=== PATIENT | female | born 1975 | race Caucasian/White ===

== ENCOUNTER 2016-07-19 16:50 | Emergency (ER) | payer OTHER ==
--- NOTE | 2016-07-19 20:03 | ED ORDER SUMMARY ---
..... Patient: JUSTINE BOND OrderSheet [facility] VisitID: [id number] [place] [address] 41y, F Registration Date/Time: 07/19/2016 ORDER SHEET Weight: 52.1 kg (stated) Allergies: No Known Drug Allergy GENERAL ORDERS: CBC w Diff Urgent (18:04 07/19/2016 Lena Tadeo) (18:06 Ángel R.N.) CMP Urgent (18:04 07/19/2016 Lena Tadeo) (18:06 Ángel R.N.) UA-Culture if indicated Urgent (18:04 07/19/2016 Lena Tadeo) (18:06 Ángel R.N.) PT with INR Urgent (18:04 07/19/2016 Lena Tadeo) (18:06 Ángel R.N.) Urine Drug Screen Urgent (18:04 07/19/2016 Lean aTdeo) (18:06 Ángel R.N.) Ethyl Alcohol Urgent (18:04 07/19/2016 Lena Tadeo) (18:06 Ángel R.N.) Salicylate Level Urgent (18:04 07/19/2016 Lena Tadeo) (18:06 Ángel R.N.) Acetaminophen Level Urgent (18:04 07/19/2016 Lena Tadeo) (18:06 Ángel R.N.) MEDICATION ORDERS: IV FLUIDS: ORDER SHEET NOTES: [Electronically signed by Jessica Maguire R.N. (20:07/19/2016)] [Electronically signed by Epifanio Mena Dr. (11:16 07/24/2016)] [Electronically locked/signed by Jessica Maguire R.N. (20:13 07/19/2016)]
--- NOTE | 2016-07-19 20:03 | ED ORDER SUMMARY ---
..... Patient: JUSTINE BOND OrderSheet [facility] VisitID: [id number] [place] [address] 41y, F Registration Date/Time: 07/19/2016 ORDER SHEET Weight: 52.1 kg (stated) Allergies: No Known Drug Allergy GENERAL ORDERS: CBC w Diff Urgent (18:04 07/19/2016 Lena Tadeo) (18:06 Ángel R.N.) CMP Urgent (18:04 07/19/2016 Lena Tadeo) (18:06 Ángel R.N.) UA-Culture if indicated Urgent (18:04 07/19/2016 Lena Tadeo) (18:06 Ángel R.N.) PT with INR Urgent (18:04 07/19/2016 Lena Tadeo) (18:06 Ángel R.N.) Urine Drug Screen Urgent (18:04 07/19/2016 Lena Tadeo) (18:06 Ángel R.N.) Ethyl Alcohol Urgent (18:04 07/19/2016 Lena Tadeo) (18:06 Ángel R.N.) Salicylate Level Urgent (18:04 07/19/2016 Lena Tadeo) (18:06 Ángel R.N.) Acetaminophen Level Urgent (18:04 07/19/2016 Lena Tadeo) (18:06 Ángel R.N.) MEDICATION ORDERS: IV FLUIDS: ORDER SHEET NOTES: [Electronically signed by Jessica Maguire R.N. (20:07/19/2016)] [Electronically signed by Epifanio Mena Dr. (11:16 07/24/2016)] [Electronically locked/signed by Jessica Maguire R.N. (20:13 07/19/2016)]
--- NOTE | 2016-07-19 20:03 | ED CLINICAL REPORT ---
Clinical Report - Physicians/Mid Levels [facility] [address] [place] [address] 07/19/2016 16:50 Patient: JUSTINE BOND Time Seen: 1750. Arrived- By private vehicle. Historian- patient and spouse. Referred by patient's family. HISTORY OF PRESENT ILLNESS Chief Complaint: DELUSIONAL. This started past few days. Has not been sleeping. She has had delusions. No suicidal thoughts or self-injury inflicted. The symptoms are described as moderate. No injury is present. Additional history - recently stopped taking medication because she "felt fine.". Similar symptoms previously: Recent medical care: The patient was seen recently by a health care provider. ( started back up on meds however states it has only been about 4 days since on it.). REVIEW OF SYSTEMS No headache, chest pain, fever, difficulty breathing or skin rash. All systems otherwise negative, except as recorded above. PAST HISTORY See nurses notes. Medications: BusPIRone HCl Oral 30 mg, 2x a day. RisperDAL Oral 6 mg, daily. OxyCODONE HCl Oral 30 mg, 3x a day. Cyclobenzaprine HCl Oral 10 mg, 3x a day. Vistaril Oral 50 mg, 3x a day. Gabapentin Oral (Tablet 600 mg), 3x a day. Allergies: No Known Drug Allergy. SOCIAL HISTORY Smoker- current status unknown. No alcohol use or drug use. Has social support. Has place to stay. FAMILY HISTORY No history of suicide attempts. PHYSICAL EXAM Appearance: Alert. No acute distress. Appearance is normal. Anxious. (well groomed. polite. cooperative. pleasant. accompanied by who is also supportive and caring.). HEENT: (glasses). Eyes: Pupils equal, round and reactive to light. CVS: Normal heart rate and rhythm. Heart sounds normal. Respiratory: Breath sounds normal. Chest nontender. Abdomen: Soft and nontender. Skin: Skin warm and dry. Normal skin color. Normal skin turgor. Extremities: Lower extremity edema. Extremities exhibit normal ROM. No lower extremity edema. Psych / Neuro: Oriented X 3. (mood is slightly elevated. affect is congruent.). Cognition normal. Thought process normal. Appears to have delusions (past several days. hearing things but is exaggerated and disturbing like the house settling.). She does appear to understand hers illness or feel treatment is necessary or appears concerned about hers current condition. Insight and judgement normal. Cranial nerves normal (as tested). No cerebellar findings. No motor deficit. No sensory deficit. Reflexes normal. (normal gait). LABS, X-RAYS, AND EKG Laboratory Tests: UA-Culture if indicated: (KYLE: 07/19/2016 18:05) ( [facility] 07/19/2016 18:54) Final results Test Result Flag Units (Reference) URINE COLOR YELLOW URINE APPEARANCE CLEAR URINE GLUCOSE NEGATIVE (NEGATIVE) URINE BILIRUBIN NEGATIVE (NEGATIVE) URINE KETONE NEGATIVE (NEGATIVE) URINE SPECIFIC GRAVITY 1.025 (1.010-1.030) URINE PH 6.0 (5.0-8.0) URINE PROTEIN TRACE (NEGATIVE) URINE UROBILINOGEN 0.2 EU/dL (0.2-1.0) URINE NITRITE NEGATIVE (NEGATIVE) URINE BLOOD TRACE-INTACT (NEGATIVE) URINE LEUK ESTERASE POSITIVE (NEGATIVE) URINE RBC 1-3 rbc/hpf (0-1) URINE WBC 5-10 wbc/hpf (0-1) URINE EPITHELIAL CELLS 1-3 EPI/hpf (0-5) URINE BACTERIA MODERATE (2+ TO 3+) (NONE SEEN) 2+ AMORPHOUS2+ MUCOUSTRANSITIONAL EPITHELIAL CELLS 0-1/HPF URINE COMMENT CULTURE INDICATED URINE CULTURES ARE SET-UP BASED ON THE FOLLOWING CRITERIA:POSITIVE NITRITEPOSITIVE LEUKOCYTE ESTERASEGREATER THAN 10 WHITE BLOOD CELLSMODERATE (2+) OR GREATER BACTERIA CBC w Diff: (KYLE: 07/19/2016 18:05) ( [facility] 07/19/2016 18:15) Final results Test Result Flag Units (Reference) WHITE BLOOD COUNT 12.3 H K/uL (4.5-11.5) RED BLOOD COUNT 4.46 M/uL (4.00-5.20) HEMOGLOBIN 13.9 gm/dL (12.0-16.0) HEMATOCRIT 41.6 % (36.0-46.0) MEAN CELL VOLUME 93 fL (80-100) MEAN CORPUSCULAR HGB 31 pg (26-34) MEAN CORPUSCULAR HGB CONC 33 g/dL (31-37) RED CELL DISTRIBUTION WIDTH 12.9 % (11.6-14.8) PLATELET COUNT 291 K/uL (150-400) NEUTROPHIL % 61.7 % (50-75) LYMPH % 31.0 % (25-40) MONO % 6.3 % (3-14) EOSINOPHIL % 0.4 % (0-4) BASOPHIL % 0.6 % (0-2) PT with INR: (KYLE: 07/19/2016 18:05) ( [facility] [place] [place] 18:28) Final results Test Result Flag Units (Reference) INR 0.9 (0.8-1.2) Low Intensity Therapy: INR 1.5-2.0 PT range 18.5-23.1Mod.Intensity Therapy: INR 2.0-3.0 PT range 23.1-31.5High Intensity Therapy: INR 2.5-3.5 PT range 27.4-35.5High Intensity Therapy 2: INR 3.0-4.0 PT range 31.5-39.3 Urine Drug Screen: (KYLE: 07/19/2016 18:05) ( [facility] [place] 18:37) Final results Test Result Flag Units (Reference) AMPHETAMINE/METHAMPHETAMINE NEGATIVE (NEGATIVE) BARBITURATE NEGATIVE (NEGATIVE) BENZODIAZEPINE NEGATIVE (NEGATIVE) CANNABINOID NEGATIVE (NEGATIVE) COCAINE NEGATIVE (NEGATIVE) ECSTASY NEGATIVE (NEGATIVE) METHADONE NEGATIVE (NEGATIVE) OPIATE POSITIVE H (NEGATIVE) The urine drug screen is a qualitative screening test fordrug overdose and abuse. All screen results should beconsidered as presumptive.Drugs screened for are as follows:BenzodiazepinesCocaineAmphetamines/MetamphetaminesTHC (Tetrahydrocannabinol)OpiatesBarbituratesEcstasyMethadonePositive results are unconfirmed. For confirmation, notifythe lab for the specimen to be sent to the reference lab.All confirmations must be performed by a differentmethodology.The ingestion of natural herbal and plant productscontaining Ephedra/Ephedra metabolites can produce in urineone or more substances capable of cross reacting withamphetamine/methamphetamine immunoassays. These testsprovide a preliminary result only. A more specificalternative chemical method must be used to obtain aconfirmed analytical result. Salicylate Level: (KYLE: 07/19/2016 18:05) ( [facility] 07/19/2016 18:29) Final results Test Result Flag Units (Reference) SALICYLATE 7.3 mg/dL (2.8-20) CMP: (KYLE: 07/19/2016 18:05) ( [facility] 07/19/2016 18:36) Final results Test Result Flag Units (Reference) GLUCOSE 108 mg/dL (70-110) BUN 18 mg/dL (7-18) CREATININE 0.8 mg/dL (0.6-1.3) Estimated GFR >60 mL/min Estimated GFR- >60 mL/min Note: Persistent reduction over 3 months in eGFR<60 mL/min/1.73 m2 defines CKD. Patients with eGFR values>=60 mL/min/1.73 m2 may also have CKD if evidence ofpersistent proteinuria. Additional information may be foundat www.kidney.org. SODIUM 140 mmol/L (136-145) POTASSIUM 4.3 mmol/L (3.5-5.1) CHLORIDE 102 mmol/L (98-107) CARBON DIOXIDE 26 mmol/L (21-32) CALCIUM 9.4 mg/dL (8.5-10.1) TOTAL PROTEIN 7.8 g/dL (6.4-8.2) ALBUMIN 4.0 g/dL (3.3-5.0) BILIRUBIN, TOTAL 0.3 mg/dL (0.0-1.0) ALKALINE PHOSPHATASE 100 U/L (46-116) AST (SGOT) 18 U/L (15-37) ALT (SGPT) 26 U/L (12-78) ACETAMINOPHEN < 10 L ug/mL (10-30) ETHYL ALCOHOL <3 L mg/dL (3-10) . PROGRESS AND PROCEDURES Course of Care: the patient is a pleasant 41-year-old female presenting for evaluation of delusions. Patient has been off her medications for about a week and had recently started them several days ago. At this time differential diagnosis includes acute psychosis secondary to medication noncompliance as well as other toxic abnormalities in regards to patient's presentation. Did not feel patient's situation is likely due to anyother significant factors as patient does not mention any of theseon questioning. No signs of infectious etiology and encouraged to patient's presentation here today as well. Patient is nontoxic and cooperative. Discusses the patient her work. Emergency Department and plan of care. Patient is agreeable to this. Since workup was marked for the findings above. Patient is medically cleared. Patient will be speaking to the crisis counselor in regards to resources and possible treatment plans. Patient was seen by the counselor. Patient is not a danger to self or others. Patient does not need to be admitted on inpatient psychiatric service. Agree with the crisis counselors evaluation. Patient is not a danger to self or others however does need some help with the delusions/psychosis. Had discussions with patient in regards to different medications that could be tried. I recommended benzodiazepines as they are well tolerated and have less of a side effect profile. Patient states that she has some aversion to the benzodiazepines. Because of this, a antipsychotic will be given. Haldol will be prescribed only for a short amount of time for the patient's Normal whole medication to start taking effect. Patient should only need this for a few days. Benefits of this medication outweigh the risks. Discussed with the patient and her spouse the workup here in the emergency department including diagnosis, home care, follow-up, and return precautions. All questions have been answered. The patient and spouse expressed understanding of these instructions and was agreeable to them. Disposition: Discharged. Condition: good. CLINICAL IMPRESSION 07/19/2016 19:00 BP: 115/45. HR: 78. RR: 15. O2 saturation: 100%. Pain level now: 0/10. 07/19/2016 17:34 BP: 119/83. HR: 62. RR: 20. O2 saturation: 98%. Temp: 98.7 F. Pain level now: 0/10. Blood pressure normal. Oxygen saturation normal. Acute psychosis with delusions, (exacerbation). INSTRUCTIONS Warnings: GENERAL WARNINGS: Return or contact your physician immediately if your condition worsens or changes unexpectedly, if not improving as expected, or if other problems arise. Specifically return if pain, vomiting, bleeding, breathing difficulty or fever. changes in behavior. Your Current Medications: CONTINUE TAKING THE FOLLOWING MEDICATIONS: BusPIRone HCl Oral : 30 mg 2x a day. Cyclobenzaprine HCl Oral : 10 mg 3x a day. Gabapentin Oral : Tablet 600 mg, 3x a day. OxyCODONE HCl Oral : 30 mg 3x a day. RisperDAL Oral : 6 mg daily. Vistaril Oral : 50 mg 3x a day. Prescription Medications: Haldol 2 mg: take 1 orally every 8 hours for 3 days. No refill. Substitution is permissible. (Disp 9 tabs. Take as needed for psychosis) Follow-up: Return to the emergency department as needed. Follow up with your doctor in three days. Reason for referral: recheck today's cocnerns. Summary of care provided to patient via paper. Screening today revealed the patient's blood pressure to be in the normal range. The patient should follow up with a primary care provider for blood pressure management. Understanding of the discharge instructions verbalized by patient. Discharge instructions reviewed (spouse). (Electronically signed by Epifanio Mena Dr. 07/24/2016 11:16) Addenda for JUSTINE BOND VisitID: [id number] Date: 07/19/2016 07/19/2016 18:34 the patient is a pleasant 41-year-old female with past medical history significant for prior headaches presenting for evaluation of headache. The patient was initially evaluated by the mid-level provider. Please see her note for further details. Patient with onset of headache this morning. Patient states that the headache had reached maximum intensity at around 2:30 PM this afternoon. This is greater than 1 hour after the onset of headache. Low clinical suspicion for subarachnoid hemorrhage at this time. Patient with normal neurological examination. No nuchal rigidity. No fever. Patient also has a negative CT scan. She also has lmiited risk factors including no history or family history of connective tissue disease, subarachnoid hemorrhages, substance abuse, or bleeding problems. Discussed with the patient the risks and benefits of the lumbar puncture. After long discussion the patient in regards to the pros and cons as well as utility of the lumbar puncture, patient declines offers of lumbar puncture. Patient is otherwise neurovascularly intact. Patient with normal mentation. Patient is able to make decisions for herself. Given the patient's low risk for subarachnoid hemorrhage, normal physical examination, normal vital signs here in the emergency department, and negative CT scan, feel the risks outweigh the benefits. Patient was encouraged to contact her health care provider or return to the emergency department immediately for any changes or worsening of her symptoms. Patient will be monitored here in the emergency department for further treatment of her headache. Patient states that the medication that she had received here in the emergency department has significantly helped with her headache. (Electronically signed by Epifanio Mena Dr. - 07/19/2016 18:34)
--- NOTE | 2016-07-19 20:03 | ED NURSING NOTES ---
Clinical Report - Nurses [place] [address] [place] [address] 07/19/2016 16:50 [id number] Triage time 17:34. Acuity: LEVEL 3. Chief Complaint: DELUSIONS. Alert. MOON COMA SCORE: [place] Coma Scale: 15- eyes open spontaneously (4); best verbal response- oriented x 4 (5); best motor response- obeys commands (6). --17:44 Ina Downs R.N. 17:34 07/19/16. BP: 119/83. HR: 62. RR: 20. O2 saturation: 98% on room air. Temp: 98.7 F (oral). Pain level now: 0/10. --17:44 Ina Downs R.N. Weight: 52.1 kg stated. Height/Length: 66 inches Per Patient. BMI: 18.5. --17:41 Ina Downs R.N. Medications Gabapentin Oral (Tablet 600 mg), 3x a day. --17:36 Ina Downs R.N. Vistaril Oral 50 mg, 3x a day. --17:37 Ina Downs R.N. Cyclobenzaprine HCl Oral 10 mg, 3x a day. --17:37 Ina Downs R.N. OxyCODONE HCl Oral 30 mg, 3x a day. --17:37 Ina Downs R.N. RisperDAL Oral 6 mg, daily. --17:38 Ina Downs R.N. BusPIRone HCl Oral 30 mg, 2x a day. --17:39 Ina Downs R.N. Medication/allergy information source: the patient. --17:44 Ina Downs R.N. Allergies No Known Drug Allergy. --17:39 Ina Downs R.N. History Arrived by private vehicle. Historian: patient. Accompanied by family. Primary physician (Kristie). Onset. (about 2 weeks, worst on Saturday). ( saw her practioner on saturday and got her started back on her medicine but she is still hearing voices, her house is "making noises"). SOCIAL HX: Heavy tobacco smoker- 1 pack per day. No alcohol use or drug use. SELF HARM ASSESSMENT: A self harm assessment was performed. The patient answered "yes" to the question "Have you recently felt down, depressed, or hopeless?" and "Have you noticed less interest or pleasure in doing things?" and "no" to the question "Do you have thoughts of harming or killing yourself?", "Are you here because you tried to hurt yourself?", "Have you ever tried to hurt yourself before today?", "Have you recently had thoughts about harming or killing others?" and "Do you have any dangerous items in your possession?". The patient reports their behavior. (appears nervous, jiggling her foot). FALL RISK ASSESSMENT: Fall risk assessment completed. No fall risk identified. FUNCTIONAL ASSESSMENT: Functional assessment: no impairments noted. LEARNING NEEDS ASSESSMENT: The learning needs assessment revealed no barriers. --17:44 Ina Downs R.N. PROBLEMS: Delusions. Palpitations. Sprain. Chest Pain. Neuralgia. Tachycardia. --17:40 Ina Downs R.N. ADDITIONAL SURGERIES: Hysterectomy. Oophorectomy. --17:40 Ina Downs R.N. Assessment GENERAL / NEURO / PSYCH: The patient is awake and alert, is oriented and appears anxious. ( states "I don't know what is real and what isn't"). RESPIRATORY: Respirations not labored. SKIN: Skin is warm and dry. --17:44 Ina Downs R.N. Interventions ID band on patient. To treatment room. --17:44 Ina Downs R.N. PHYSICAL ASSESSMENT Ambulatory to room. Patient gowned. ( states she stopped taking her risperadol because she felt better, restarted it this Saturday). GENERAL / NEURO / PSYCH: The patient is awake and alert, is oriented and cooperative and appears anxious. She has good eye contact. RESPIRATORY: Respirations not labored. SKIN: Skin is warm and dry. --17:46 Ina Downs R.N. NURSING PROGRESS NOTES 17:46 07/19/16. Patient gowned. Head of bed elevated. Call light placed in reach. Side rails up x 1. Bed placed in lowest position. Brakes of bed on. --17:46 Ina Downs R.N. Reassurance given. Suicide precautions initiated. Clothing / valuables removed and placed at the nurse's station. Patient placed in direct sight of the nurse's station. --18:07 Jessica Maguire R.N. ( Pt states "feeling trapped in her thoughts with all the noises" denies suicide thoughts or trying to harm herself. Pt awaiting PAT team for evaluation.). --18:45 Jessica Maguire R.N. Reassurance given. Suicide precautions initiated. GENERAL / NEURO / PSYCH: The patient reports anxiety and restlessness. Denies anger. Not disoriented. Patient appears agitated. She not combative. --19:27 Jessica Maguire R.N. 19:00 07/19/16. BP: 115/45. HR: 78. RR: 15. O2 saturation: 100% on room air. Pain level now: 0/10. --19:27 Jessica Maguire R.N. DISPOSITION / DISCHARGE No learning barriers present. Discharge instructions provided and reviewed with the patient. Reviewed medication(s) side effects, precautions, dosing and course information. Prescription(s) given to the patient. Patient and spouse verbalized understanding. Written instructions provided in [place]i. ( Will follow-up with her on doctor tomorrow). The patient was discharged by the physician. She was discharged home and accompanied by spouse. She left the Emergency Department ambulatory and via private vehicle. Spouse driving. --20:13 Jessica Maguire R.N. 20:12 07/19/16. BP: 114/70 (regular adult cuff) taken on the left arm, while sitting. HR: 87. RR: 14. O2 saturation: 100%. Temp: 98.4 F (oral). Pain level now: 0/10. --20:13 Jessica Maguire R.N. Departure time: 2012 PM. --20:13 Maguire, Jessica, R.N. Locked/Released at 07/19/2016 20:13 by Jessica Maguire R.N.
--- NOTE | 2016-07-24 11:16 | ED MAR SUMMARY ---
..... Medication Administration Record [facility] [address] [place], [place] [id number] Patient: JUSTINE BOND Visit ID: [id number] 41y, F Weight: 52.1 kg Height/Length: 66 in BMI: 18.5 ALLERGIES: No Known Drug Allergy
--- NOTE | 2016-07-24 11:16 | ED MED RECONCILIATION SUMMARY ---
Patient: JUSTINE BOND Medication Reconciliation Report [facility] VisitID: [id number] [address] [place] [address] 41y, F Registration Date/Time: 07/19/2016 Weight: 52.1 kg Height/Length: 66 in. BMI: 18.5 ALLERGIES: No Known Drug Allergy The patient's Home Medications are listed below: CONTINUE TAKING THE FOLLOWING MEDICATIONS: BusPIRone HCl Oral 30 mg, 2x a day Cyclobenzaprine HCl Oral 10 mg, 3x a day Gabapentin Oral (600 mg), 3x a day OxyCODONE HCl Oral 30 mg, 3x a day RisperDAL Oral 6 mg, daily Vistaril Oral 50 mg, 3x a day The source(s) of the original Home Medication information: patient The following Medications were given to the patient in the Emergency Department: None. The following Medications were prescribed to the patient: Haldol 2 mg: take 1 orally every 8 hours for 3 days. No refill. Substitution is permissible.(Disp 9 tabs. Take as needed for psychosis) -- Epifanio Mena Dr.
--- NOTE | 2016-07-24 11:16 | ED MED RECONCILIATION SUMMARY ---
Patient: JUSTINE BOND Medication Reconciliation Report [facility] VisitID: [id number] [address] [place] [address] 41y, F Registration Date/Time: 07/19/2016 Weight: 52.1 kg Height/Length: 66 in. BMI: 18.5 ALLERGIES: No Known Drug Allergy The patient's Home Medications are listed below: CONTINUE TAKING THE FOLLOWING MEDICATIONS: BusPIRone HCl Oral 30 mg, 2x a day Cyclobenzaprine HCl Oral 10 mg, 3x a day Gabapentin Oral (600 mg), 3x a day OxyCODONE HCl Oral 30 mg, 3x a day RisperDAL Oral 6 mg, daily Vistaril Oral 50 mg, 3x a day The source(s) of the original Home Medication information: patient The following Medications were given to the patient in the Emergency Department: None. The following Medications were prescribed to the patient: Haldol 2 mg: take 1 orally every 8 hours for 3 days. No refill. Substitution is permissible.(Disp 9 tabs. Take as needed for psychosis) -- Epifanio Mena Dr.
--- NOTE | 2016-07-24 11:16 | ED DISCHARGE INSTRUCTIONS ---
Patient: JUSTINE BOND General Instructions [facility] VisitID: [id number] [place] [address] 41y, F Registration Date/Time: 07/19/2016 07/19/2016 19:00 BP: 115/45. HR: 78. RR: 15. O2 saturation: 100%. Pain level now: 0/10. 07/19/2016 17:34 BP: 119/83. HR: 62. RR: 20. O2 saturation: 98%. Temp: 98.7 F. Pain level now: 0/10. Blood pressure normal. Oxygen saturation normal. Acute psychosis with delusions, (exacerbation). INSTRUCTIONS Warnings: GENERAL WARNINGS: Return or contact your physician immediately if your condition worsens or changes unexpectedly, if not improving as expected, or if other problems arise. Specifically return if pain, vomiting, bleeding, breathing difficulty or fever. changes in behavior. Your Current Medications: CONTINUE TAKING THE FOLLOWING MEDICATIONS: BusPIRone HCl Oral : 30 mg 2x a day. Cyclobenzaprine HCl Oral : 10 mg 3x a day. Gabapentin Oral : Tablet 600 mg, 3x a day. OxyCODONE HCl Oral : 30 mg 3x a day. RisperDAL Oral : 6 mg daily. Vistaril Oral : 50 mg 3x a day. Prescription Medications: Haldol 2 mg: take 1 orally every 8 hours for 3 days. No refill. Substitution is permissible. (Disp 9 tabs. Take as needed for psychosis) Follow-up: Return to the emergency department as needed. Follow up with your doctor in three days. Reason for referral: recheck today's cocnerns. Summary of care provided to patient via paper. Screening today revealed the patient's blood pressure to be in the normal range. The patient should follow up with a primary care provider for blood pressure management. Understanding of the discharge instructions verbalized by patient. Discharge instructions reviewed (spouse). ADDITIONAL INFORMATION Psychosis Psychosis is a mental health problem. It causes a person to be out of touch with reality and affects a persons daily functioning. There are different kinds of psychosis: Drug-induced (due to alcohol, methamphetamine, cocaine, LSD, PCP and others) Bipolar disorder (formerly called Manic-Depression) Depression Schizophrenia Dementia Symptoms of psychosis can include: Hearing voices that others do not hear Seeing things that others do not see Racing thoughts Lack of energy Feeling extremely fearful Treatment for psychosis depends on the cause. Medicine, with or without psychotherapy, is often used. Home Care: Be sure to take your medicine as directed even if you think you don't need it. Talk with your family about your feelings and thoughts. Follow Up with your counselor, therapist or psychiatrist as advised by our staff. To learn more about this illness and available resources, contact your local mental health organization. [employer] [place] [employer] Mental Illness: www.greg.org Get Prompt Medical Attention if any of the following occur: Feeling like you want to harm yourself or another Feeling extremely depressed Feeling out of control or being controlled by others Unable to care for yourself You have been given the following additional information: Psychosis (Electronically signed by Epifanio Mena Dr. 07/24/2016 11:16)
--- NOTE | 2016-07-24 11:16 | ED MAR SUMMARY ---
..... Medication Administration Record [facility] [address] [place], [place] [id number] Patient: JUSTINE BOND Visit ID: [id number] 41y, F Weight: 52.1 kg Height/Length: 66 in BMI: 18.5 ALLERGIES: No Known Drug Allergy
== END 2016-07-19 20:13 | disposition home or self-care (01) ==
LOC: ED SRH 16:50
DX: F23 Brief psychotic disorder (principal); F22 Delusional disorders; Z79.899 Other long term (current) drug therapy; Z79.891 Long term (current) use of opiate analgesic
CPT/HCPCS: 90004; 90100; 90469; 92010; 92760; 92761; 92762; 92763; 92764; 92765; 92766; 92767; 92780; 94060; 95059; 97000